=== PATIENT | male | born 1975 ===

== ENCOUNTER 2017-11-05 22:28 | Inpatient (IN) ==
[2017-11-05] MEDS ORDERED: CEFEPIME 2,000 MG in SODIUM CHLORIDE 0.9% 100 ML IV STA (22:58)
[2017-11-06] MEDS ORDERED: ONDANSETRON 4 MG/2 ML VIAL IV PRN (01:39)
[2017-11-06] MEDS ORDERED: DEXTROSE 5% LACTATED RINGERS 1,000 ML IV SCH (02:00)
[2017-11-06] MEDS: MORPHINE 4 MG/1 ML VIAL IV PRN ×2 (04:58→09:49)
[2017-11-06] MEDS: PIPERACILLIN/TAZOBACTAM 3,375 MG in SODIUM CHLORIDE 0.9% 100 ML IV SCH ×3 (05:00→22:34)
[2017-11-06 07:55] LABS: Basophils % 0.2 % (0.0-0.8); Eosinophils # 0.3 10*3/uL (0.0-0.87); Eosinophils % 1.3 % (0.00-10.9); Hematocrit 41.7 VOL% (42.0-52.0); Hemoglobin 14.6 GM/DL (14.0-18.0); Immature Granulocytes % 0.8 %; Immature Granulocytes Absolute 0.16 #; Lymphocytes # 2.2 10*3/uL (1.4-4.0); Lymphocytes % 10.7 % (21.2-54.2); Mean Corpuscular Hemoglobin 30 PG (27-34); Mean Corpuscular Volume 85.3 FL (87-102); Mean Platelet Volume 9.7 FL (9.6-12.0); Monocytes # 2.1 10*3/uL (0.11-0.8); Monocytes % 10.3 % (1.7-12.7); Neutrophils # 15.9 10*3/uL (1.4-7.4); Neutrophils % 76.7 % (38.7-73.9); Platelet Count 250 T/CUMM (130-400); Red Blood Count 4.89 MC/CUMM (3.8-5.5); Red Cell Distribution Width 11.9 % (9.3-17.3); White Blood Count 20.7 T/CUMM (4-12)
[2017-11-06 08:15] LABS: Albumin 2.8 G/DL (3.4-5.0); Bilirubin,Total 1.8 MG/DL (0.2-1.0); Calcium 8.2 MG/DL (8.5-10.1); Osmolality,Calculated 267.7 MOS/KG (273-304); Potassium 3.8 MMOL/L (3.5-5.1); Total Protein 7.2 G/DL (6.4-8.3)
[2017-11-06 08:24] LABS: Eosinophils 1 % (0-10); Lymphocytes 15 % (20-55); Segmented Neutrophils 72 % (50-85); Total Cells Counted 100
[2017-11-06 08:25] LABS: Platelet Estimate Normal
[2017-11-06 08:29] LABS: Spherocytes Few
[2017-11-06] MEDS ORDERED: DEXTROSE 50% 25 GM/50 ML VIAL IV PRN (09:00)
[2017-11-06] MEDS ORDERED: GLUCAGON 1 MG VIAL IM PRN (09:00)
[2017-11-06] MEDS: LACTATED RINGERS 1,000 ML IV SCH ×2 (09:50→17:53)
[2017-11-06] MEDS: PANTOPRAZOLE 40 MG TABLET PO SCH (10:04)
[2017-11-06] MEDS: CLINDAMYCIN INJ 600 MG in PREMIX 1 EACH IV SCH ×2 (10:39→17:49)
[2017-11-06] MEDS: INSULIN LISPRO 100 UNIT/ML SUBCUT SCH ×3 (11:51→22:29)
[2017-11-06] MEDS ORDERED: BUPIVACAINE 0.25% /EPI 10 ML VIAL ONE (12:29)
[2017-11-06] MEDS ORDERED: LIDOCAINE 1%/EPI INJ 20 ML VIAL ONE (12:29)
[2017-11-06] MEDS ORDERED: PROPOFOL 200 MG/20 ML VIAL IV ONE (13:35)
[2017-11-06] MEDS ORDERED: ONDANSETRON 4 MG/2 ML VIAL ONE (13:36)
[2017-11-06] MEDS ORDERED: MIDAZOLAM 2 MG/2 ML VIAL ONE (13:36)
[2017-11-06] MEDS ORDERED: fentaNYL 100 MCG/2 ML VIAL ONE (13:36)
[2017-11-06] MEDS ORDERED: PROPOFOL 500 MG/50 ML BOTTLE IV ONE (13:36)
[2017-11-06] MEDS: MUPIROCIN 2% OINT 22 GM TUBE TOP SCH ×2 (14:39→22:29)
[2017-11-06 18:01] LABS: Apearance,Urine Slightly Hazy (Clear); Bilirubin,Urine Negative (Negative); Blood, Urine Moderate mg/dL (Negative); Glucose,Urine (UA) >=500 mg/dL (Negative); Ketones,Urine 20 mg/dL (Negative); Mucus,Urine Occasional /LPF (Occasional); Nitrite,Urine Negative (Negative); Protein,Urine 30 MG/DL; RBC,Urine 3 /HPF (0-4); Squamous Epithelial Cell,Urine Occasional /HPF (0-10); Urine Color Dark yellow (Yellow); Urine Specific Gravity 1.023 (1.001-1.035); WBC,Urine 3 /HPF (0-6)
[2017-11-07] MEDS: LACTATED RINGERS 1,000 ML IV SCH ×2 (02:05→12:11)
[2017-11-07] MEDS: CLINDAMYCIN INJ 600 MG in PREMIX 1 EACH IV SCH ×3 (02:33→17:37)
[2017-11-07] MEDS: PIPERACILLIN/TAZOBACTAM 3,375 MG in SODIUM CHLORIDE 0.9% 100 ML IV SCH ×3 (05:15→20:52)
[2017-11-07 06:10] LABS: Basophils # 0.1 10*3/uL (0.0-0.2); Basophils % 0.3 % (0.0-0.8); Eosinophils # 0.6 10*3/uL (0.0-0.87); Eosinophils % 3.8 % (0.00-10.9); Hematocrit 38.6 VOL% (42.0-52.0); Hemoglobin 13.7 GM/DL (14.0-18.0); Immature Granulocytes Absolute 0.17 #; Lymphocytes # 3.4 10*3/uL (1.4-4.0); Lymphocytes % 20.6 % (21.2-54.2); Mean Corpuscular HGB Conc 35.5 GM/DL (32-36); Mean Corpuscular Hemoglobin 30 PG (27-34); Mean Corpuscular Volume 84.1 FL (87-102); Monocytes % 12.1 % (1.7-12.7); Neutrophils # 10.2 10*3/uL (1.4-7.4); Neutrophils % 62.2 % (38.7-73.9); Platelet Count 265 T/CUMM (130-400); Red Blood Count 4.59 MC/CUMM (3.8-5.5); White Blood Count 16.4 T/CUMM (4-12)
[2017-11-07 06:33] LABS: Calcium 7.9 MG/DL (8.5-10.1); Osmolality,Calculated 273.2 MOS/KG (273-304); Potassium 3.6 MMOL/L (3.5-5.1)
[2017-11-07] MEDS: INSULIN LISPRO 100 UNIT/ML SUBCUT SCH ×4 (07:45→20:48)
[2017-11-07] MEDS: PANTOPRAZOLE 40 MG TABLET PO SCH (09:10)
[2017-11-07] MEDS: MUPIROCIN 2% OINT 22 GM TUBE TOP SCH ×3 (09:11→20:50)
[2017-11-07] MEDS: SODIUM HYPOCHLORITE 0.25% IRRIG 473 ML BOTTLE TOP SCH (12:14)
[2017-11-07] MEDS: glyBURIDE/METFORMIN 5-500 MG TABLET PO SCH (16:50)
[2017-11-08] MEDS: CLINDAMYCIN INJ 600 MG in PREMIX 1 EACH IV SCH ×3 (01:23→18:08)
[2017-11-08] MEDS: PIPERACILLIN/TAZOBACTAM 3,375 MG in SODIUM CHLORIDE 0.9% 100 ML IV SCH ×2 (04:19→13:11)
[2017-11-08 06:27] LABS: Basophils % 0.3 % (0.0-0.8); Eosinophils # 0.6 10*3/uL (0.0-0.87); Eosinophils % 4.9 % (0.00-10.9); Hematocrit 38.2 VOL% (42.0-52.0); Hemoglobin 13.7 GM/DL (14.0-18.0); Immature Granulocytes % 1.3 %; Immature Granulocytes Absolute 0.15 #; Lymphocytes # 2.9 10*3/uL (1.4-4.0); Lymphocytes % 24.6 % (21.2-54.2); Mean Corpuscular HGB Conc 35.9 GM/DL (32-36); Mean Corpuscular Hemoglobin 30 PG (27-34); Mean Corpuscular Volume 83.4 FL (87-102); Mean Platelet Volume 9.8 FL (9.6-12.0); Monocytes # 1.5 10*3/uL (0.11-0.8); Monocytes % 12.4 % (1.7-12.7); Neutrophils # 6.6 10*3/uL (1.4-7.4); Neutrophils % 56.5 % (38.7-73.9); Platelet Count 273 T/CUMM (130-400); Red Blood Count 4.58 MC/CUMM (3.8-5.5); Red Cell Distribution Width 11.9 % (9.3-17.3); White Blood Count 11.8 T/CUMM (4-12)
[2017-11-08 06:35] LABS: Calcium 7.9 MG/DL (8.5-10.1); Potassium 3.6 MMOL/L (3.5-5.1)
[2017-11-08] MEDS: INSULIN LISPRO 100 UNIT/ML SUBCUT SCH ×3 (08:07→16:54)
[2017-11-08] MEDS ORDERED: glyBURIDE/METFORMIN 5-500 MG TABLET PO SCH (09:00)
[2017-11-08] MEDS: glyBURIDE/METFORMIN 5-500 MG TABLET PO SCH ×2 (09:41→18:08)
[2017-11-08] MEDS: PANTOPRAZOLE 40 MG TABLET PO SCH (09:41)
[2017-11-08] MEDS: MUPIROCIN 2% OINT 22 GM TUBE TOP SCH ×2 (09:41→15:39)
[2017-11-08] MEDS: SODIUM HYPOCHLORITE 0.25% IRRIG 473 ML BOTTLE TOP SCH (11:00)
[2017-11-08 21:02] VITALS: BP 144/79
== END 2017-11-08 19:33 | disposition home health service (06) | DRG 580 ==
LOC: EDBD → EDUNIT# → N.ED 22:28 → N.EDINP 22:28 → N.3E 11-06 02:41
PROVIDERS: ADMIT Surgery; ATTEND Surgery